=== PATIENT | female | born 1960 | race African-American/Black ===

== ENCOUNTER 2017-01-20 11:49 | Emergency (ER) | payer MEDICAID ==
[~2017-01-20] VITALS: Ht 175.3 cm; Wt 63.5 kg
[2017-01-20 12:08] VITALS: BP 128/93
[2017-01-20 13:06] LABS: Basophils # (auto) 0.1 uL; Basophils % (auto) 0.9 % (0.0-2.0); Eosinophils # (auto) 0.2 uL; Hematocrit 47.3 % (36.0-46.0); Hemoglobin 15.7 g/dL (12.2-16.2); Lymphocytes # (auto) 3.1 uL; Lymphocytes % (auto) 29.5 % (10.0-50.0); Mean Corpuscular Hemoglobin 32.3 pg (28.0-32.0); Mean Corpuscular Hgb Conc. 33.2 g/dL (32.0-36.0); Mean Corpuscular Volume 97.4 fL (80.0-100.0); Mean Platelet Volume 7.5 fL (6.9-10.8); Monocytes # (auto) 0.5 uL; Monocytes % (auto) 4.5 % (0.0-12.0); Neutrophils # (auto) 6.6 uL; Neutrophils % (auto) 63.1 % (37.0-80.0); Platelet Count (auto) 398 10^3/uL (140-450); Red Cell Distribution Width 12.5 % (11.8-14.3); White Blood Cell 10.5 10^3/uL (4.4-10.8)
[2017-01-20 13:33] LABS: Anion Gap 7 (5-15); Aspartate Aminotransferase 20 U/L (15-37); Blood Urea Nitrogen 9 mg/dL (7-18); Calcium 9.7 mg/dL (8.5-10.1); Carbon Dioxide 27 mmol/L (21-32); Chloride 105 mmol/L (98-107); GFR African American 93 mL/min; GFR Non-African American 77 mL/min; Glucose 86 mg/dL (74-106); Magnesium 2.4 mg/dL (1.6-2.6); Potassium 3.7 mmol/L (3.5-5.1); Sodium 139 mmol/L (136-145)
[2017-01-20 13:39] LABS: Alkaline Phosphatase 95 U/L (45-117); Bilirubin, Total 0.6 mg/dL (0.2-1.0); Total Protein 8.6 g/dL (6.4-8.2)
== END 2017-01-20 15:23 | disposition home or self-care (01) ==
LOC: ER 11:49
DX: R07.89 Other chest pain (principal); F17.210 Nicotine dependence, cigarettes, uncomplicated; Z90.710 Acquired absence of both cervix and uterus; Z88.6 Allergy status to analgesic agent
CPT/HCPCS: 36415; 71020; 80053; 83735; 84484; 85025; 93005

== ENCOUNTER 2017-03-23 09:10 | Emergency (ER) | payer MEDICAID ==
[~2017-03-23] VITALS: Ht 175.3 cm; Wt 63.5 kg
[2017-03-23 09:54] LABS: Basophils # (auto) 0.1 uL; Basophils % (auto) 0.5 % (0.0-2.0); Eosinophils # (auto) 0.3 uL; Eosinophils % (auto) 2.1 % (0.0-7.0); Hemoglobin 14.8 g/dL (12.2-16.2); Lymphocytes # (auto) 2.6 uL; Lymphocytes % (auto) 18.3 % (10.0-50.0); Mean Corpuscular Hgb Conc. 33.6 g/dL (32.0-36.0); Mean Corpuscular Volume 98.3 fL (80.0-100.0); Monocytes # (auto) 0.7 uL; Monocytes % (auto) 4.8 % (0.0-12.0); Neutrophils # (auto) 10.5 uL; Neutrophils % (auto) 74.3 % (37.0-80.0); Platelet Count (auto) 336 10^3/uL (140-450); Red Blood Cells 4.48 10^6/uL (4.0-5.20); White Blood Cell 14.1 10^3/uL (4.4-10.8)
[2017-03-23 10:15] LABS: Alanine Aminotransferase 30 U/L (13-56); Albumin 4.1 g/dL (3.4-5.0); Alkaline Phosphatase 101 U/L (45-117); Anion Gap 9 (5-15); Aspartate Aminotransferase 18 U/L (15-37); BUN/Creatinine Ratio 11.4; Bilirubin, Total 0.4 mg/dL (0.2-1.0); Blood Urea Nitrogen 9 mg/dL (7-18); Calcium 8.8 mg/dL (8.5-10.1); Carbon Dioxide 25 mmol/L (21-32); Chloride 106 mmol/L (98-107); GFR African American 98 mL/min; GFR Non-African American 81 mL/min; Glucose 84 mg/dL (74-106); Potassium 3.6 mmol/L (3.5-5.1); Sodium 140 mmol/L (136-145); Total Protein 8.3 g/dL (6.4-8.2)
[2017-03-23 10:58] LABS: Urine Bacteria NONE SEEN /hpf (None Seen); Urine Blood Negative /uL (Negative); Urine Mucus FEW (None Seen); Urine Specific Gravity 1.022 (1.001-1.035); Urine WBC 3 /hpf (0 - 5)
[2017-03-23 12:02] VITALS: BP 162/87
== END 2017-03-23 14:44 | disposition left against medical advice (07) ==
LOC: ER 09:10
DX: R07.9 Chest pain, unspecified (principal); C55 Malignant neoplasm of uterus, part unspecified; C78.00 Secondary malignant neoplasm of unspecified lung; C79.51 Secondary malignant neoplasm of bone; F17.210 Nicotine dependence, cigarettes, uncomplicated; Z90.710 Acquired absence of both cervix and uterus; Z88.6 Allergy status to analgesic agent
CPT/HCPCS: 36415; 71046; 71250; 80053; 81001; 84484; 85025; 93005

== ENCOUNTER 2017-04-07 08:22 | Emergency (ER) | payer MEDICAID ==
[~2017-04-07] VITALS: Ht 175.3 cm; Wt 61.2 kg
[2017-04-07 09:30] LABS: Basophils # (auto) 0.1 uL; Eosinophils # (auto) 0.3 uL; Hematocrit 39.1 % (36.0-46.0); Hemoglobin 13.2 g/dL (12.2-16.2)
[2017-04-07 09:33] LABS: Basophils % (auto) 0.6 % (0.0-2.0); Lymphocytes % (auto) 15.9 % (10.0-50.0); Mean Corpuscular Hgb Conc. 33.8 g/dL (32.0-36.0); Mean Corpuscular Volume 97.5 fL (80.0-100.0); Monocytes # (auto) 0.7 uL; Monocytes % (auto) 5.2 % (0.0-12.0); Neutrophils # (auto) 9.8 uL; Neutrophils % (auto) 76.3 % (37.0-80.0); Platelet Count (auto) 457 10^3/uL (140-450); Red Blood Cells 4.01 10^6/uL (4.0-5.20); Red Cell Distribution Width 12.9 % (11.8-14.3); White Blood Cell 12.8 10^3/uL (4.4-10.8)
[2017-04-07 09:42] LABS: Chloride 103 mmol/L (98-107); Potassium 3.2 mmol/L (3.5-5.1); Sodium 139 mmol/L (136-145)
[2017-04-07 09:46] LABS: Alanine Aminotransferase 24 U/L (13-56); Albumin 3.6 g/dL (3.4-5.0); Anion Gap 10 (5-15); Aspartate Aminotransferase 19 U/L (15-37); Blood Urea Nitrogen 10 mg/dL (7-18); Calcium 9.7 mg/dL (8.5-10.1); Carbon Dioxide 26 mmol/L (21-32); GFR African American 92 mL/min; GFR Non-African American 76 mL/min; Glucose 98 mg/dL (74-106); Total Protein 8.1 g/dL (6.4-8.2)
[2017-04-07 09:51] LABS: Alkaline Phosphatase 88 U/L (45-117); Bilirubin, Total 0.4 mg/dL (0.2-1.0)
[2017-04-07] MEDS ORDERED: NALBUPHINE HCL 10 MG/1ml INJECTION IV ONE (12:15)
[2017-04-07] MEDS ORDERED: ONDANSETRON HCL 4 MG/2 ML VIAL IV ONE (12:15)
[2017-04-07 13:36] VITALS: BP 140/86
== END 2017-04-07 14:26 | disposition home or self-care (01) ==
LOC: ER 08:22
DX: R10.13 Epigastric pain (principal); F17.210 Nicotine dependence, cigarettes, uncomplicated; Z90.710 Acquired absence of both cervix and uterus; Z85.831 Personal history of malignant neoplasm of soft tissue; Z88.6 Allergy status to analgesic agent
CPT/HCPCS: 36415; 71046; 74176; 80053; 84484; 85025; 93005; 96374; 96375; 99285; J2300; J2405

== ENCOUNTER 2017-05-25 16:30 | Observation (INO) | payer MEDICAID ==
[~2017-05-25] VITALS: Ht 175.3 cm; Wt 59.0 kg
[2017-05-25 17:40] VITALS: BP 137/84
[2017-05-25 19:20] LABS: INR 1.05 (0.9-1.15); Prothrombin Time 11.4 sec (9.37-12.3)
[2017-05-25 19:28] LABS: Alanine Aminotransferase 27 U/L (13-56); Albumin 3.1 g/dL (3.4-5.0); Alkaline Phosphatase 125 U/L (45-117); Anion Gap 10 (5-15); Aspartate Aminotransferase 29 U/L (15-37); BUN/Creatinine Ratio 17.6; Bilirubin, Total 0.3 mg/dL (0.2-1.0); Blood Urea Nitrogen 16 mg/dL (7-18); Calcium 8.8 mg/dL (8.5-10.1); Carbon Dioxide 26 mmol/L (21-32); Chloride 103 mmol/L (98-107); GFR African American 83 mL/min; GFR Non-African American 68 mL/min; Glucose 115 mg/dL (74-106); Sodium 139 mmol/L (136-145); Total Protein 7.4 g/dL (6.4-8.2)
[2017-05-25 19:43] LABS: Potassium 2.8 mmol/L (3.5-5.1)
[2017-05-25] MEDS ORDERED: POTASSIUM CHL 20 Meq TABLET PO ONE ×2 (20:15)
[2017-05-25 21:13] LABS: Hematocrit 31.2 % (36.0-46.0); Hemoglobin 10.4 g/dL (12.2-16.2); Mean Corpuscular Hgb Conc. 33.4 g/dL (32.0-36.0); Mean Corpuscular Volume 98.7 fL (80.0-100.0); Red Blood Cells 3.16 10^6/uL (4.0-5.20); Red Cell Distribution Width 13.1 % (11.8-14.3); White Blood Cell 16.2 10^3/uL (4.4-10.8)
[2017-05-25 21:26] LABS: Platelet Count (auto) 13 10^3/uL (140-450)
[2017-05-25 21:27] LABS: Basophils % (manual) 0 (0.0-2.0); Blast Cells 0; Eosinophils % (manual) 0 (0-7); Promyelocytes % 0
[2017-05-25 23:00] LABS: Band Neutrophils % (manual) 17; Lymphocytes % (manual) 13 (10.0-50.0); Metamyelocytes % 2; Monocytes % (manual) 8 (0-12); Myelocytes % 1
[2017-05-25 23:01] LABS: Reactive Lymphocytes 5
== END 2017-05-25 22:02 | disposition home or self-care (01) | DRG 136 ==
LOC: ER 16:34 → OVERFLOW 18:11 → ER 22:02
PROVIDERS: ADMIT Family Medicine; ATTEND Family Medicine
DX: C34.90 Malignant neoplasm of unspecified part of unspecified bronchus or lung (principal); D69.6 Thrombocytopenia, unspecified; C55 Malignant neoplasm of uterus, part unspecified; E87.6 Hypokalemia; Z85.118 Personal history of other malignant neoplasm of bronchus and lung; Z85.42 Personal history of malignant neoplasm of other parts of uterus; Z87.891 Personal history of nicotine dependence; Z90.710 Acquired absence of both cervix and uterus; Z92.21 Personal history of antineoplastic chemotherapy; Z82.49 Family history of ischemic heart disease and other diseases of the circulatory system
CPT/HCPCS: 36415; 71045; 80053; 83880; 84484; 85007; 85027; 85610; 85730; 99285; G0378; 93005